=== PATIENT | female | born 1990 | race African-American/Black ===

== ENCOUNTER 2018-09-05 00:42 | Outpatient (CLI) | payer BC, OTHER ==
[2018-09-05 16:55] LABS: Hemoglobin 11.6 g/dL (12.0-16.0); Mean Corpuscular HGB CONC 31.1 g/dL (32.0-36.0); Mean Corpuscular Hemoglobin 24.3 pg (27.0-31.0); Mean Corpuscular Volume 78.1 fL (78.0-98.0); Mean Platelet Volume 7.8 fL (7.4-10.4); Platelet Count 294 thou/uL (130-400); RBC Distribution Width 13.2 % (11.5-14.5); Red Blood Cell (RBC) Count 4.78 mill/uL (4.20-5.40); White Blood Cell (WBC) Count 11.3 thou/uL (4.8-10.8)
== END 2018-09-05 00:43 | disposition home or self-care (01) ==
LOC: LABBT 00:42
PROVIDERS: ATTEND Obstetrics & Gynecology
DX: Z01.812 Encounter for preprocedural laboratory examination (principal); N83.201 Unspecified ovarian cyst, right side
CPT/HCPCS: 85027; 86850; 86900; 86901

== ENCOUNTER 2018-09-08 08:04 | Day surgery (SDC) | payer BC, OTHER ==
[2018-09-05 15:38] VITALS: BMI 31.1
--- NOTE | 2018-09-07 23:47 | HP ---
PREOPERATIVE DIAGNOSES: 1. Fourteen weeks five days with 9 cm solid right ovarian mass. 2. History of disseminated coccidioidomycosis. HISTORY OF PRESENT ILLNESS: Ms. Henriquez is a 28-year-old, G2, P1-0-0-1 at 14 weeks and 5 days who has been seen in my office for obstetric care beginning at approximately 9 weeks gestational age. When the patient was 12 weeks gestational age, she had an ultrasound for genetic screening, which included a nuchal translucency measurement. During this measurement, she was incidentally found to have an approximate 9-cm solid-appearing right adnexal mass with dermoid features. The patient's past medical history is significant for coccidioidomycosis that has been managed with oral Diflucan. The patient sees Dr. Lucio for her management of this condition. At the time of the ultrasound finding, we discussed the differential diagnosis of the mass, any indication for laparoscopic removal in the 2nd trimester. The patient does note increased discomfort over the last few months at her right lower quadrant, which she attributes to this mass. With the exception of the coccidioidomycosis the patient's obstetrical care has been uncomplicated to this point. PAST MEDICAL HISTORY: Coccidioidomycosis. CURRENT MEDICATIONS: 1. vitamin. 2. Diflucan 200 mg once a day. ALLERGIES: NO KNOWN DRUG ALLERGIES. PAST SURGICAL HISTORY: None. FAMILY HISTORY: Noncontributory. SOCIAL HISTORY: No alcohol, tobacco, or drug use. She is . OBSTETRICAL HISTORY: 2, para 1, with a vaginal delivery in 2014. GYNECOLOGICAL HISTORY: Normal Pap smear in 2019, otherwise negative. PHYSICAL EXAMINATION: VITAL SIGNS: Blood pressure 120/74, weight 187 pounds. GENERAL: No acute distress. Alert and oriented. HEART: Regular rate and rhythm. LUNGS: Nonlabored breathing. ABDOMEN: Soft, mild tenderness in the right lower quadrant. No rebound or guarding. No hepatosplenomegaly. : At the time of her initial visit in July 2018 was unremarkable. MUSCULOSKELETAL: Grossly normal. SKIN: No rashes or suspicious lesion. PSYCHIATRIC: Appropriate affect and mood. IMAGING STUDY: Ultrasound on August 2014, normal nuchal translucency measurement at 2.5 mm and normal heart rate, a right adnexal mass that is suspicious for a dermoid measuring 8.5 x 5 x 5 cm, 2.5 cm left corpus luteum. ASSESSMENT AND PLAN: Ms. Henriquez is a 28-year-old, G2, P1-0-0-1 at 14 weeks and 5 days at the time of planned laparoscopic right salpingo-oophorectomy, who has been counseled on the risks and benefits of expectant management versus surgical management of the right adnexal mass. Differential diagnosis includes dermoid cyst versus extrapulmonary Coccidioides manifestation versus other ovarian pathology. The patient understands the risks and benefits of the surgery as well as an expectant management. A brief encounter with Dr. Lucio recommending no additional surgical precautions to be taken, but that the patient continue the Diflucan 200 mg daily. The patient's questions have been answered to her satisfaction. She understands the risk of the surgery to include, but not limited to bleeding, infection, to image intraabdominal pelvic organs, possible need for future medical and/or surgical management and possible inability to fully diagnose and treat all conditions at the time of surgery. She also aware of the risk of surgery during and these have been discussed with her in detail. The patient is aware of the inherent risk of anesthesia, which will be reviewed with her on the day of surgery by the anesthesia team. Job ID: [id number] MTDD
[2018-09-08] MEDS ORDERED: Fentanyl 250 MCG/5 ML VIAL ONE (10:10)
[2018-09-08] MEDS ORDERED: Bupivacaine HCl 0.5%/Epinephrine 1:200,000/PF 30 ml Vial ONE (10:16)
[2018-09-08] MEDS ORDERED: Meperidine HCl/PF 25 MG/ML VIAL ONE (12:16)
--- NOTE | 2018-09-08 13:03 | OP ---
DATE OF PROCEDURE: 09/08/2018 PREOPERATIVE DIAGNOSES: 1. A 14-week . 2. An 8-cm right adnexal solid mass. POSTOPERATIVE DIAGNOSES: 1. A 14-week . 2. An 8-cm right adnexal solid mass. PROCEDURE PERFORMED: Laparoscopic right salpingo-oophorectomy. CHIEF DIGITAL MEDIA OFFICER: Viktoria Casiano DO COMPLICATIONS: None. ESTIMATED BLOOD LOSS: Less than 10 mL. OPERATIVE FINDINGS: Normal-appearing left ovary. Normal-appearing left tube. Normal-appearing gravid uterus. Normal-appearing right fallopian tube. A 7 to 8 cm solid right ovarian cyst. ANESTHESIA: GETA. DESCRIPTION OF PROCEDURE: The patient was taken back to the OR with IV fluids running. When she was in the OR, general anesthesia was placed. The patient was placed in low dorsal lithotomy position. A Block catheter was placed using sterile technique to drain the bladder. The abdomen was prepped and draped in normal fashion for gynecologic laparoscopy. Approximately 1-cm above the umbilicus, a 12-mm skin incision was made. A Veress needle was placed through the skin incision, and the abdomen was insufflated without difficulty. The Veress needle was then removed, and a 12-mm trocar was gently placed through the thin abdominal wall into the abdominal cavity. The obturator was then removed, and the laparoscope was placed through this port site. The patient was then placed in Trendelenburg position with the above findings noted. Under direct visualization and in similar fashion, the right and left lower quadrant 5-mm ports were placed. A blunt grasper and a blunt probe were used to manipulate the adnexa bilaterally with the above findings noted. The right adnexa was grasped at the uterus and fimbriated into the fallopian tube and elevated away from pelvic sidewall. The LigaSure device was used to transect the IP ligament as well as partially resect the fimbriated end of the fallopian tube. Once the specimen was transected, it was placed into the pelvis. The supraumbilical incision was then extended to approximately 2 cm. The trocar was removed, and the GelPOINT mini retractor was placed through this incision. The 12-mm trocar was placed through the GelPOINT, which was then attached to the GelPOINT retractor, and the abdomen was then insufflated again. A laparoscopic EndoCatch bag was placed through the 12-mm port under direct visualization. The mass was placed into the bag, and the bag was retracted up to the umbilical port site. The right and left lower quadrant 5-mm trocars were then removed. The gas was released from the abdomen, and the mass was gently brought that contained in the EndoCatch bag through the supraumbilical port site. Once this was completed, the GelPOINT mini retractor was removed. The counts were correct. The supraumbilical fascia was reapproximated with Vicryl suture. All 3 skin incisions were closed with Monocryl suture and dressed with Dermabond dressing. The patient tolerated the procedure well. Her Block catheter was removed. She was extubated and transferred to recovery room in good condition. Job ID: [id number]
[2018-09-08] MEDS ORDERED: HYDROcodone/Acetaminophen 5/325 mg Tablet ONE (14:41)
[2018-09-08] MEDS ORDERED: Glycopyrrolate 0.2 MG/ML 5 ML SYRINGE ONE (15:24)
[2018-09-08] MEDS ORDERED: Ondansetron PF 4 MG/2 ML Vial ONE (15:24)
[2018-09-08] MEDS ORDERED: Rocuronium Bromide 10 MG/ML (10ML VIAL) ONE (15:24)
[2018-09-08] MEDS ORDERED: Lidocaine 1% PF 5 ML VIAL ONE (15:24)
[2018-09-08] MEDS ORDERED: Succinylcholine Chloride 20 MG/ML 10 ml SYRINGE FS ONE (15:24)
[2018-09-08] MEDS ORDERED: PROPOFOL 200 MG/20 ML VIAL ONE (15:24)
== END 2018-09-08 15:15 | disposition home or self-care (01) ==
LOC: SDC 08:04
PROVIDERS: ATTEND Obstetrics & Gynecology
PROC: 0UB04ZZ Excision of Right Ovary, Percutaneous Endoscopic Approach (ICD-10-PCS; principal; 2018-09-08)
PROC: 0UB54ZZ Excision of Right Fallopian Tube, Percutaneous Endoscopic Approach (ICD-10-PCS; principal; 2018-09-08)
DX: O34.81 Maternal care for other abnormalities of pelvic organs, first trimester (principal); D27.0 Benign neoplasm of right ovary; N83.9 Noninflammatory disorder of ovary, fallopian tube and broad ligament, unspecified; O99.511 Diseases of the respiratory system complicating pregnancy, first trimester; B38.9 Coccidioidomycosis, unspecified; Z3A.14 14 weeks gestation of pregnancy; Z79.899 Other long term (current) drug therapy
CPT/HCPCS: 88307; J0670; J2001; J2175; J2405; J2704; J3010

== ENCOUNTER 2019-03-07 02:27 | Inpatient (IN) | payer BC, OTHER ==
[2019-03-07 02:57] VITALS: BMI 34.4
[2019-03-07] MEDS ORDERED: Promethazine HCl 25 MG/ML VIAL IM PRN ×2 (03:04→04:07)
[2019-03-07] MEDS ORDERED: Lidocaine 1% (PF) 30 ML VIAL SC PRN (03:04)
[2019-03-07] MEDS ORDERED: Carboprost 250 MCG/ML AMP IM PRN (03:04)
[2019-03-07] MEDS ORDERED: Misoprostol 200 MCG TAB PR PRN (03:04)
[2019-03-07] MEDS ORDERED: Methylergonovine 0.2 MG/ML VIAL IM PRN (03:04)
[2019-03-07] MEDS ORDERED: HYDROcodone/Acetaminophen 5/325 mg Tablet PO PRN ×2 (03:04)
[2019-03-07] MEDS ORDERED: Ibuprofen 800 MG TAB PO PRN (03:04)
[2019-03-07] MEDS ORDERED: Diphenoxylate HCl/Atropine Tablet PO PRN ×2 (03:04)
[2019-03-07] MEDS ORDERED: Ondansetron PF 4 MG/2 ML Vial IVP PRN ×2 (03:04→04:07)
[2019-03-07] MEDS ORDERED: hydrALAZINE 20 MG/ML VIAL SLOW IVP PRN (03:04)
[2019-03-07] MEDS: Lactated Ringer's 1,000 ML IV SCH ×2 (03:20→04:12)
--- NOTE | 2019-03-07 03:28 | PDOC.FPROB ---
FMR OB H&P: HPI - History of Present Illness Chief Complaint: Contractions Indentification: 28yo at 40.3wks History of Present Illness: 28yo at 40.3wks presents for painful contractions. Has not been timing them. Denies vaginal bleeding, LOF. Endorses FM. 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 - Family History Family History: None. No family hx of sickle cell FMR OB H&P: Medications - Current Home Medications: Medication Instructions Recorded Confirmed Type Fluconazole [Diflucan] 1 tab PO DAILY 05/02/15 03/07/19 History 21/Iron Fu/Folic Acid 1 tablet PO DAILY 03/07/19 03/07/19 History [ Complete Caplet] Allergies/Adverse Reactions: Allergies Allergy/AdvReac Type Severity Reaction Status Date / Time No Known Allergies Allergy Verified 03/07/19 02:47 FMR OB H&P: ROS - Review of Systems General: denies: fever/chills, fatigue Eyes: denies: vision changes, double vision, scotomas ENT: denies: nasal congestion, sore throat Cardiovascular: denies: chest pain, palpitation Respiratory: denies: cough, shortness of breath Gastrointestinal: denies: abdominal pain, vomiting Genitourinary (Female): reports: contractions. denies: vaginal bleeding Integumentary: denies: itching, rash FMR OB H&P: Vital Signs - Maternal Vital signs: Vital Signs - First Documented Temp Pulse Resp BP 98.1 F 116 H 18 134/80 03/07/19 02:43 03/07/19 02:43 03/07/19 02:43 03/07/19 02:43 - Heart Tones Baseline: 140 Variability: moderate Acceleration: present Deceleration: absent Category: category 1 [place] contractions every: 5-7min FMR OB H&P: Physical Exam - Physical Exam General: NAD, awake, alert and oriented HEENT: normocephalic and atraumatic, MMM, conjunctiva clear, grossly normal hearing Neck: supple, trachea midline General: no respiratory distress Abdomen: soft, gravid, non-tender Musculoskeletal: FROM in all four extremities, no misalignment/asymmetry Neurological: no focal deficit Skin: no rash, good tugor Lymphatic: no unusual bruising or bleeding Psychiatric: intact recent and remote memory, good judgement and insight, normal mood and affect - Pelvic Exam Vulva: normal hair distribution, no lesions SVE: /-2 Presentation: Vertex FMR OB H&P: A/P Disposition: 28yo at 40.3wks sIUP - GBS neg - SVE /-2 - FHTs Cat 1 - Desires epidural - Continue serial cervical checks Renetta Mann MD PGY-2 Pt was evaluated by Dr Lee Discussion: Date/Time: 03/07/19 8351 This H&P was discussed with [] and [] who agree with the above documentation and plan.
[2019-03-07] MEDS ORDERED: Fentanyl 4 mcg/Bup 0.1% Cadd 100 ML ONE (03:33)
[2019-03-07 03:40] LABS: Hemoglobin 12.1 g/dL (12.0-16.0); Mean Corpuscular Hemoglobin 24.4 pg (27.0-31.0); Mean Corpuscular Volume 76.1 fL (78.0-98.0); Mean Platelet Volume 8.4 fL (7.4-10.4); Platelet Count 268 thou/uL (130-400); RBC Distribution Width 14.6 % (11.5-14.5); Red Blood Cell (RBC) Count 4.96 mill/uL (4.20-5.40)
[2019-03-07] MEDS ORDERED: Lactated Ringer's 500 ML IV PRN (04:07)
[2019-03-07] MEDS ORDERED: diphenhydrAMINE 50 MG/ML VIAL IVP PRN (04:07)
[2019-03-07] MEDS ORDERED: Naloxone HCl 0.4 mg/ml Vial IVP PRN ×2 (04:07)
[2019-03-07] MEDS ORDERED: ePHEDrine/0.9% NaCl/PF SYRINGE 50 mg/10 ml SLOW IVP PRN (04:07)
[2019-03-07] MEDS ORDERED: Fentanyl 4 mcg/Bupivacaine 0.1% Cassette 100 ML EPIDURAL SCH (04:15)
[2019-03-07] MEDS ORDERED: Communication Order-Pharmacy FS SCH (04:15)
[2019-03-07 04:19] LABS: HBSAg Index 0.21 S/CO (0-0.99); Hep B Surf Ag Non-Reactive S/CO (NonReactive)
[2019-03-07 04:25] LABS: Syphilis Antibody Nonreactive (Nonreactive); Syphilis Antibody Index 0.03 S/CO (<1.00 Non-Reactive)
--- NOTE | 2019-03-07 08:28 | PDOC.EVN ---
Event Note - Event Note Event Note: Received report from Dr. Lee. 28 yo at 39 weeks in labor. Comfortable with epidural. SROM with exam, SVE 9/80/0 vtx with light meconium. FHTs stable, UCs q 3-4 mins. Plan: Expect .
[2019-03-07] MEDS: NS / Oxytocin 40 units/1000ml 1,000 ML IV PRN ×2 (10:07→12:29)
--- NOTE | 2019-03-07 10:18 | PDOC.OPDEL ---
OB Operative/Delivery Note Pre-Delivery Diagnosis: active labor Procedure/Post Delivery Dx: spontaneous vaginal delivery Weeks gestation: 39 Anesthesia: epidural - Additional Findings/Plan Placenta delivered: spontaneous Repaired Obstetrical Laceration: periurethral Estimated blood loss: QBL pending Compilations/Other Findings: Viable male OA over intact perineum. Bulb suctioned on perineum of small amt. of light mec. Placenta intact Darren. Apgars 6/9, art cord gas pending. NICU team present for delivery. Post delivery plan: routine recovery
[2019-03-07] MEDS ORDERED: Bupivacaine/Epinephrine 0.25% 30 ML VIAL ONE (11:11)
[2019-03-07] MEDS: Acetaminophen 325 MG TAB PO PRN (20:15)
--- NOTE | 2019-03-08 00:32 | PDOC.PP ---
Post Progress Note Post Day #: PPD1 Subjective: Resting, no c/o. PO intake tolerated: yes Flatus: yes Ambulation: yes Vital Signs (12 hours) Temp Pulse Resp BP Pulse Ox 03/07/19 17:45 97.1 F L 98 20 117/70 98 03/07/19 16:45 97.7 F 100 20 114/71 97 Weight Weight 93.894 kg - Physical Examination General: NAD Respiratory: non-labored breathing Abdominal: no distention Neurological: no gross focal deficits Psychiatric: normal affect Result Diagrams: 03/07/19 03:28 Additional Labs: Post Labs Blood Type O POSITIVE 03/07/19 03:28 Hep Bs Antigen Non-Reactive S/CO (NonReactive) 03/07/19 03:29 - Assessment/Plan Doing well s/p . Routine PP care.
[2019-03-08] MEDS: Acetaminophen 325 MG TAB PO PRN ×5 (00:40→23:11)
[2019-03-09 01:02] VITALS: TEMP 98.3
[2019-03-09] MEDS: Acetaminophen 325 MG TAB PO PRN (03:18)
[2019-03-09 08:13] VITALS: BP 122/76
--- NOTE | 2019-03-09 08:42 | PDOC.PP ---
Post Progress Note Post Day #: PPD2 Subjective: Dpoing well. C/o cramping as she breastfeeds. PO intake tolerated: yes Flatus: yes Ambulation: yes Vital Signs (12 hours) Temp Pulse Resp BP Pulse Ox 03/09/19 08:12 98.3 F 95 20 122/76 99 03/08/19 23:05 98.3 F 91 16 120/77 03/08/19 20:45 98.6 F 105 H 18 121/73 98 Weight Weight 93.894 kg - Physical Examination General: NAD Respiratory: non-labored breathing Abdominal: no distention Neurological: no gross focal deficits Psychiatric: normal affect Result Diagrams: 03/07/19 03:28 Additional Labs: Post Labs Blood Type O POSITIVE 03/07/19 03:28 Hep Bs Antigen Non-Reactive S/CO (NonReactive) 03/07/19 03:29 - Assessment/Plan Doing weel. Baby in NICU under bili lights. Motrin OTC prn cramps. DC to B&B. RTC [address] Figueredo. Precautions.
== END 2019-03-09 16:09 | disposition home or self-care (01) | DRG 807 ==
LOC: L&D/OP 02:27 → L&D 03:04 → 3SE 17:06
PROVIDERS: ADMIT Obstetrics & Gynecology; ATTEND Obstetrics & Gynecology
PROC: 10E0XZZ Delivery of Products of Conception, External Approach (ICD-10-PCS; principal; 2019-03-07)
DX: O48.0 Post-term pregnancy (principal); Z37.0 Single live birth; Z3A.40 40 weeks gestation of pregnancy; O77.0 Labor and delivery complicated by meconium in amniotic fluid; O71.82 Other specified trauma to perineum and vulva
CPT/HCPCS: 36415; 51702; 82805; 85027; 86780; 86850; 86900; 86901; 87340; 88307; 99285; J2001; J2405